=== PATIENT | male | born 1955 | race Caucasian/White ===

== ENCOUNTER 2017-10-19 08:39 | Day surgery (SDC) | payer OTHER ==
[~2017-10-19] VITALS: Ht 182.9 cm; Wt 101.2 kg
[2017-10-19 09:39] VITALS: Ht 182.9 cm; Wt 101.2 kg
[2017-10-19] MEDS ORDERED: losartan PO (09:57)
[2017-10-19] MEDS ORDERED: novolog SC (09:57)
[2017-10-19] MEDS ORDERED: INSU300I SQ (09:57)
[2017-10-19] MEDS ORDERED: gabapentin PO (09:57)
[2017-10-19] MEDS ORDERED: ASPI-535 PO (09:57)
[2017-10-19] MEDS ORDERED: LEVO175T6 PO (09:57)
[2017-10-19] MEDS ORDERED: SIMV-39 PO (09:57)
[2017-10-19] MEDS ORDERED: PROPOFOL 40 ML ONE (10:05)
[2017-10-19] MEDS ORDERED: LIDOCAINE 2% (SDV) 5 ML INJ ONE (10:05)
[2017-10-19 10:07] VITALS: BP 124/71; PULSE 65; RESP 16
--- NOTE | 2017-10-19 10:57 | OPPN ---
Date/Time of Note Date/Time of Note DATE: 10/19/17 TIME: 10:56 Proc Note GI Procedure Date 10/19/17 Indication: screening/surveillance Pre-procedure Diagnosis r/o colon polyps Post-procedure Diagnosis 7mmpolyp at 50 cm snared Procedure Performed: Colonoscopy Surgeon see signature line Assembler Final none Anesthesia Type: MAC Tourniquet Time none EBL none Transfusion required none Biopsy 1: colon polyp Grafts/Implants none Tubes/Drains none Complication(s) none Procedure Description under mac colonoscopy performedd polypectomy done see dict ASHLEE TABARES MD Oct 19, 2017 10:57
[2017-10-19 11:16] VITALS: BP 118/74; RESP 18
--- NOTE | 2017-10-22 07:13 | GILP ---
DATE OF PROCEDURE: NAME OF PROCEDURE: Colonoscopy and polypectomy. PREOPERATIVE DIAGNOSIS: Patient presenting with a history of no significant problems. This is a sc reening colonoscopy to rule out colon polyps. FINDINGS: Sessile polyp noted measuring about 7 mm in diameter located at 15 cm from the anus. Col d snare, polypectomy was performed. The rest of the colon appeared normal. DESCRIPTION OF PROCEDURE: After informed written consent was obtained, the patient was asked to lie on the left lateral side. Intravenous anesthesia was given by anesthesiologist, Dr. Vanessa. When th e patient became somnolent, the Olympus video colonoscope was introduced into the rectum and scope w as advanced all the way to the cecum. The entire colon appeared perfectly normal. At about 15 cm f rom the anus, there is evidence of a 7 mm wide-based polyp noted. By using the cold snare, polypect nora was performed. Polyp was sent for histopathology. Scope at this time was withdrawn. No biology intern al hemorrhoids. No external hemorrhoids were noted and the procedure was terminated. PLAN: Recommend wait for the pathology report. Dictated By: ASHLEE SANCHEZ/JOEL Conf#: [id number] DID#: [id number]
== END 2017-10-19 11:31 | disposition home or self-care (01) ==
LOC: GIL 08:39
PROVIDERS: ATTEND Internal Medicine Gastroenterology
DX: Z12.11 Encounter for screening for malignant neoplasm of colon (principal); D12.6 Benign neoplasm of colon, unspecified; E11.9 Type 2 diabetes mellitus without complications; E78.5 Hyperlipidemia, unspecified; E03.9 Hypothyroidism, unspecified; F17.200 Nicotine dependence, unspecified, uncomplicated
CPT/HCPCS: 45380; 82962; 88305; Z7610